=== PATIENT | female | born 1950 | race Caucasian/White ===

== ENCOUNTER 2016-06-24 22:13 | Emergency (ER) | payer MEDICARE, OTHER ==
[~2016-06-24] VITALS: Ht 170.2 cm; Wt 95.8 kg
[~2016-06-24 22:13] MED LIST: ALBU18HF INH; ALPR1TAB10 PO; ASPI-496 PO; ATOR10TA9 PO; BACL-19 PO; BUTA1CAP59 PO; CLIN300C93 PO; CYCL-259 PO; DULO60CA7 PO; FURO80TA3 PO; GABA300C10 PO; HYDR25TA6 PO; HYOS0.128 SL; LEVO25TA2 PO; LEVO750T26 PO; LISI-170 PO; LONOX PO; LORA1TAB PO; MELO-190 PO; METH-356 PO; MOME13HF INH; OXYC10TA6 PO; OXYC1TAB9 PO; OXYC5TAB2 PO; PRED20TA PO; TIOT18CA INH; TIZA4CAP PO; TRAM50TA2 PO
[2016-06-24 23:27] VITALS: BP 178/91
== END 2016-06-25 04:45 | disposition home or self-care (01) ==
LOC: ED 23:59
DX: K59.00 Constipation, unspecified (principal); E03.9 Hypothyroidism, unspecified; E78.00 Pure hypercholesterolemia, unspecified; I10 Essential (primary) hypertension; I25.10 Atherosclerotic heart disease of native coronary artery without angina pectoris; K58.9 Irritable bowel syndrome, unspecified; Z95.0 Presence of cardiac pacemaker; Z90.49 Acquired absence of other specified parts of digestive tract; Z90.710 Acquired absence of both cervix and uterus
CPT/HCPCS: 51701; 81001; P9612

== ENCOUNTER 2016-11-25 19:26 | Emergency (ER) | payer MEDICARE, OTHER ==
[~2016-11-25] VITALS: Ht 170.2 cm; Wt 150.0 kg
[2016-11-25] MEDS ORDERED: SODIUM CHLORIDE 0.9% 1,000 ML IV ONE (19:53)
[2016-11-25] MEDS ORDERED: SODIUM CHLORIDE FLUSH 10ML SYR IVF ONE (20:00)
[2016-11-25 20:45] LABS: HEMATOCRIT 37.9 % (34.6-47.8); HEMOGLOBIN 12.2 g/dL (11.7-16.4); WHITE BLOOD COUNT 11.7 x10^3/uL (3.4-10)
[2016-11-25 21:01] LABS: ASPARTATE AMINO TRANSFERASE 47 U/L (15-37); BLOOD UREA NITROGEN 8 mg/dL (7-18)
[2016-11-25 21:14] VITALS: BP 125/50
[2016-11-25] MEDS ORDERED: CEFTRIAXONE PMX 1GM/50ML 50 ML IV ONE (21:30)
[2016-11-25] MEDS ORDERED: SULFAMETH./TRIMETHOPRIM DS 800MG/160MG TABLET PO ONE (21:30)
[2016-11-25] MEDS ORDERED: CEFTRIAXONE PMX 1GM/50ML 50 ML ONE (21:49)
[2016-11-25] MEDS ORDERED: SULFAMETH./TRIMETHOPRIM DS 800MG/160MG TABLET ONE (21:50)
== END 2016-11-25 22:30 | disposition home or self-care (01) ==
LOC: ED 22:24
DX: L03.116 Cellulitis of left lower limb (principal); J44.9 Chronic obstructive pulmonary disease, unspecified; I10 Essential (primary) hypertension; E03.9 Hypothyroidism, unspecified; Z90.49 Acquired absence of other specified parts of digestive tract; Z90.710 Acquired absence of both cervix and uterus
CPT/HCPCS: 36415; 73502; 80053; 83605; 85025; 87040; 96361; 96365; 99285; J0696; J7030

== ENCOUNTER → 2017-09-11 | Outpatient (CLI) | payer MEDICARE ==
[~2017-09-11] MED LIST changes: +CLIN300C8 PO; -CLIN300C93 PO; -HYOS0.128 SL; +HYOS0.1281 SL; -MELO-190 PO; +MELO7.5T31 PO
== END | disposition home or self-care (01) ==
LOC: RAD 07:32
PROVIDERS: ATTEND Family Medicine
DX: R06.02 Shortness of breath (principal); R06.00 Dyspnea, unspecified; Z95.0 Presence of cardiac pacemaker
CPT/HCPCS: 71046

== ENCOUNTER → 2018-03-27 | Outpatient (CLI) | payer MEDICARE ==
[~2018-03-27] MED LIST changes: +OXYC-432 PO; -OXYC1TAB9 PO
== END | disposition home or self-care (01) ==
LOC: CFH 14:22
PROVIDERS: ATTEND Family Medicine
DX: Z12.31 Encounter for screening mammogram for malignant neoplasm of breast (principal); Z80.3 Family history of malignant neoplasm of breast
CPT/HCPCS: 77063; 77067

== ENCOUNTER 2018-05-29 05:28 | Day surgery (SDC) | payer MEDICARE ==
[~2018-05-29] VITALS: Ht 170.2 cm; Wt 117.0 kg
[~2018-05-29 05:28] MED LIST changes: -METH-356 PO; +METH10TA2 PO
[2018-05-29] MEDS ORDERED: LACTATED RINGERS 1,000 ML IV SCH (06:13)
[2018-05-29 06:19] VITALS: BP 104/69
[2018-05-29] MEDS ORDERED: FENTANYL PF 100 MCG/2ML ONE (07:12)
[2018-05-29] MEDS ORDERED: MIDAZOLAM 1 MG/ML, 2ML ONE (07:12)
[2018-05-29] MEDS ORDERED: methylPREDNISolone *ACETATE* 40 MG/ML ONE (07:14)
[2018-05-29] MEDS ORDERED: BUPIVACAINE/PF 0.5% ONE (07:14)
[2018-05-29] MEDS ORDERED: BUPIVACAINE 0.25% ONE (07:14)
[2018-05-29] MEDS ORDERED: PROPOFOL 10 MG/ML, 20ML ONE (07:28)
[2018-05-29] MEDS ORDERED: ONDANSETRON 2MG/ML, 2ML IVPush PRN (07:30)
[2018-05-29] MEDS ORDERED: PROMETHAZINE 25 MG/ML, 1ML IM PRN (07:30)
[2018-05-29] MEDS ORDERED: ACETAMINOPHEN 325 MG TABLET PO PRN ×2 (07:30→08:30)
[2018-05-29] MEDS ORDERED: ALBUTEROL SULFATE 2.5 MG/3 ML NPPB PRN (08:30)
[2018-05-29] MEDS ORDERED: FENTANYL PF 100 MCG/2ML IV PRN (08:30)
[2018-05-29] MEDS ORDERED: LABETALOL 5MG/ML, 20ML IV PRN (08:30)
[2018-05-29] MEDS ORDERED: OXYcodone 5 MG/5 ML ORAL.SOL UDC PO PRN (08:30)
[2018-05-29] MEDS ORDERED: KETOROLAC 30 MG/1 ML IV PRN (08:30)
[2018-05-29] MEDS ORDERED: PROMETHAZINE 25 MG/ML, 1ML IV PRN (08:30)
[2018-05-29] MEDS ORDERED: DIAZEPAM 5 MG/ML, 2ML IVPush PRN (08:30)
[2018-05-29] MEDS ORDERED: MEPERIDINE/PF 25MG/0.5ML IVPush PRN (08:30)
[2018-05-29] MEDS ORDERED: HYDROmorphone 2 MG/ML, 1ML IVPush PRN (08:30)
[2018-05-29] MEDS ORDERED: hydrALAzine 20 MG/ML, 1ML IV PRN (08:30)
[2018-05-29] MEDS ORDERED: ACETAMINOPHEN 650 MG/20.3 ML UDC ONE (08:37)
[2018-05-29 09:37] LABS: CELLS COUNTED 180
[2018-05-30] MEDS ORDERED: LEVOTHYROXINE 25 MCG TABLET PO SCH (06:00)
[2018-06-01] MEDS ORDERED: MELO7.5T31 PO (14:01)
[2018-06-01] MEDS ORDERED: TRAM50TA2 PO (14:14)
== END 2018-05-29 09:30 | disposition home or self-care (01) ==
LOC: OUT 05:28
PROVIDERS: ATTEND Orthopaedic Surgery
DX: M25.552 Pain in left hip (principal); J44.9 Chronic obstructive pulmonary disease, unspecified; E66.01 Morbid (severe) obesity due to excess calories; Z68.41 Body mass index [BMI] 40.0-44.9, adult
CPT/HCPCS: 20610; 73501; 77002; 87070; 87075; 87147; 87181; 87205; 89051; 93005; J2250; J2704; J3010; J7120; 76000; J3490; J1030

== ENCOUNTER 2018-06-01 16:15 | Inpatient (IN) | payer MEDICARE ==
[~2018-06-01] VITALS: Ht 170.2 cm; Wt 123.8 kg
[2018-06-01 15:38] LABS: BASOPHILS # (AUTO) 0.07 x10^3/uL (0-0.1); BASOPHILS % (AUTO) 1 % (0-1); EOSINOPHILS # (AUTO) 0.47 x10^3/uL (0-0.4); EOSINOPHILS % (AUTO) 5 % (1-7); LYMPHOCYTES # (AUTO) 2.53 x10^3/uL (1-3.4); LYMPHOCYTES % (AUTO) 25 % (22-44); MD NO; MEAN CORPUSCULAR HEMOGLOBIN 22.8 pg (27.0-34.8); MEAN CORPUSCULAR HGB CONC 31.6 g/dL (32.4-35.8); MEAN CORPUSCULAR VOLUME 72.3 fL (80-100); MEAN PLATELET VOLUME 7.7 fL (7.4-10.4); MONOCYTES # (AUTO) 0.71 x10^3/uL (0.2-0.8); MONOCYTES % (AUTO) 7 % (2-9); NEUTROPHILS % (AUTO) 63 % (42-75); PLATELET COUNT 457 x10^3/uL (130-400); RED BLOOD COUNT 4.78 x10^6/uL (3.82-5.3); RED CELL DISTRIBUTION WIDTH 19.5 % (9.6-15.2)
[2018-06-01 15:50] LABS: ALANINE AMINOTRANSFERASE 16 U/L (12-78); ALBUMIN 2.8 g/dL (3.4-5.0); ANION GAP 3 mmol/L (5-15); CALCIUM 8.6 mg/dL (8.5-10.1); CHLORIDE 106 mmol/L (98-107); CREATININE 0.54 mg/dL (0.55-1.02)
[2018-06-01 15:52] LABS: ALKALINE PHOSPHATASE 114 U/L (45-117); BILIRUBIN,TOTAL 0.3 mg/dL (0.2-1.0); TOTAL PROTEIN 7.1 g/dL (6.4-8.2)
[~2018-06-01 16:15] MED LIST changes: +ACETAMINOPHEN 500 MG TABLET ONE; +ACETAMINOPHEN 500 MG TABLET PO ONE; +DIAZEPAM 5 MG TABLET ONE; +DIAZEPAM 5 MG TABLET PO ONE; +FENTANYL PF 250 MCG/5ML ONE; +GABAPENTIN 300 MG CAPSULE ONE; +GABAPENTIN 300 MG CAPSULE PO ONE; +LACTATED RINGERS 1,000 ML IV SCH; +LIDOCAINE-MPF 1%, 2ML ONE; +MIDAZOLAM 1 MG/ML, 2ML ONE; +OxyconTIN ER 10 MG TAB.ER ONE; +OxyconTIN ER 10 MG TAB.ER PO ONE
[2018-06-01] MEDS ORDERED: TRANEXAMIC ACID 100 MG/ML, 10ML ONE (16:18)
[2018-06-01] MEDS ORDERED: KETOROLAC 60 MG/2 ML ONE (16:18)
[2018-06-01] MEDS ORDERED: ROPIvacaine/PF 0.2%, 20 ML ONE (16:18)
[2018-06-01] MEDS ORDERED: VANCOMYCIN 500 MG ONE (16:18)
[2018-06-01] MEDS ORDERED: EPINEPHRINE 1 MG/ML, 1ML ONE (16:19)
[2018-06-01] MEDS ORDERED: SODIUM CHLORIDE 0.9% 50 ML ONE (16:19)
[2018-06-01] MEDS ORDERED: VANCOMYCIN 1,000 MG ONE (16:25)
[2018-06-01] MEDS ORDERED: ROCURONIUM 10MG/ML,5ML ONE (16:41)
[2018-06-01] MEDS ORDERED: PHENYLEPHRINE 10 MG/ML ONE (16:41)
[2018-06-01] MEDS ORDERED: SUCCINYLCHOLINE 20 MG/ML, 10ML ONE (16:41)
[2018-06-01] MEDS ORDERED: MEPERIDINE/PF 25MG/0.5ML IVPush PRN ×2 (17:30→20:30)
[2018-06-01] MEDS ORDERED: FENTANYL PF 100 MCG/2ML IV PRN (17:30)
[2018-06-01] MEDS ORDERED: PROMETHAZINE 25 MG/ML, 1ML IV PRN (17:30)
[2018-06-01] MEDS ORDERED: MIDAZOLAM 1 MG/ML, 2ML IV PRN (17:30)
[2018-06-01] MEDS ORDERED: LABETALOL 5MG/ML, 20ML IV PRN ×2 (17:30→20:30)
[2018-06-01] MEDS ORDERED: hydrALAzine 20 MG/ML, 1ML IV PRN ×2 (17:30→20:30)
[2018-06-01] MEDS ORDERED: HYDROmorphone 2 MG/ML, 1ML IVPush PRN (17:30)
[2018-06-01] MEDS ORDERED: ALBUTEROL/IPRATROPIUM 2.5MG/0.5MG, 3 ML NPPB PRN (17:30)
[2018-06-01] MEDS ORDERED: ONDANSETRON 2MG/ML, 2ML IV PRN ×2 (17:30→20:30)
[2018-06-01] MEDS ORDERED: OXYcodone 5 MG/5 ML ORAL.SOL UDC PO PRN ×2 (17:30→20:30)
[2018-06-01] MEDS ORDERED: ONDANSETRON 2MG/ML, 2ML ONE (17:51)
[2018-06-01] MEDS ORDERED: CEFAZOLIN 1,000 MG ONE (17:51)
[2018-06-01] MEDS ORDERED: PROPOFOL 10 MG/ML, 20ML ONE (17:51)
[2018-06-01] MEDS ORDERED: MEPERIDINE/PF 100 MG/ML ONE (17:51)
[2018-06-01] MEDS ORDERED: HYDROmorphone 2 MG/ML, 1ML ONE (20:07)
[2018-06-01] MEDS ORDERED: FENTANYL PF 100 MCG/2ML ONE (20:07)
[2018-06-01] MEDS ORDERED: OXYcodone 5 MG/5 ML ORAL.SOL UDC ONE (20:07)
[2018-06-01] MEDS: HYDROmorphone 2 MG/ML, 1ML IVPush PRN ×2 (20:10→20:40)
[2018-06-01] MEDS: FENTANYL PF 100 MCG/2ML IV PRN ×2 (20:10→20:35)
[2018-06-01] MEDS ORDERED: HYDROmorphone 1 MG/ML, 1ML IV PRN (20:30)
[2018-06-01] MEDS ORDERED: VANCOMYCIN PER PHARMACY MC PRN (20:30)
[2018-06-01] MEDS ORDERED: LORazepam 2 MG/ML, 1ML IVPush PRN (20:30)
[2018-06-01] MEDS ORDERED: PROMETHAZINE 25 MG/ML, 1ML IM PRN (20:30)
[2018-06-01] MEDS ORDERED: TRANEXAMIC ACID 1,000 MG in SODIUM CHLORIDE 0.9% 100 ML IVPB ONE (20:30)
[2018-06-01] MEDS ORDERED: MAGNESIUM HYDROXIDE 8%, 30ML UDC PO PRN (20:30)
[2018-06-01] MEDS ORDERED: ONDANSETRON 4 MG TABLET PO PRN (20:30)
[2018-06-01] MEDS ORDERED: TEMPLATE NON-FORMULARY MED. (Alprazolam** 1 MG) PO SCH (20:30)
[2018-06-01] MEDS ORDERED: BISACODYL 10 MG SUPP PR PRN (20:30)
[2018-06-01] MEDS ORDERED: PROMETHAZINE 12.5 MG SUPP PR PRN (20:30)
[2018-06-01] MEDS ORDERED: PHARMACOKINETIC MONITORING MC PRN (22:00)
[2018-06-01 22:45] VITALS: BP 98/57
[2018-06-01] MEDS ORDERED: CEFAZOLIN PMX 2GM/50ML 50 ML IVPB SCH (23:30)
[2018-06-01] MEDS: ACETAMINOPHEN 500 MG TABLET PO SCH (23:46)
[2018-06-01] MEDS: DOCUSATE 100 MG CAPSULE PO SCH (23:46)
[2018-06-01] MEDS: ATORVASTATIN 20 MG TABLET PO SCH (23:47)
[2018-06-01] MEDS: GABAPENTIN 300 MG CAPSULE PO SCH (23:47)
[2018-06-01] MEDS: TIZANIDINE 4MG TABLET PO SCH (23:48)
[2018-06-01] MEDS: D5%-0.45% NACL 1,000 ML IV SCH (23:50)
[2018-06-02] MEDS: DIAZEPAM 5 MG TABLET PO PRN ×2 (00:34→22:26)
[2018-06-02] MEDS: ACETAMINOPHEN 500 MG TABLET PO SCH ×4 (02:50→20:26)
[2018-06-02] MEDS: OXYcodone IR 5MG TABLET PO PRN ×2 (03:20→20:26)
[2018-06-02] MEDS: D5%-0.45% NACL 1,000 ML IV SCH ×2 (03:30→12:04)
[2018-06-02 03:44] LABS: MEAN CORPUSCULAR HEMOGLOBIN 22.5 pg (27.0-34.8); MEAN CORPUSCULAR VOLUME 72.6 fL (80-100); PLATELET COUNT 408 x10^3/uL (130-400); RED BLOOD COUNT 4.12 x10^6/uL (3.82-5.3); RED CELL DISTRIBUTION WIDTH 19.4 % (9.6-15.2)
[2018-06-02 03:48] LABS: ALBUMIN 2.4 g/dL (3.4-5.0); ANION GAP 6 mmol/L (5-15); CALCIUM 8.1 mg/dL (8.5-10.1); CHLORIDE 109 mmol/L (98-107); CREATININE 0.74 mg/dL (0.55-1.02)
[2018-06-02 04:00] VITALS: BP 98/32
[2018-06-02 04:11] LABS: BASOPHILS # (AUTO) 0.05 x10^3/uL (0-0.1); BASOPHILS % (AUTO) 0 % (0-1); EOSINOPHILS % (AUTO) 0 % (1-7); LYMPHOCYTES # (AUTO) 1.41 x10^3/uL (1-3.4); LYMPHOCYTES % (AUTO) 7 % (22-44); MD SCAN; MONOCYTES % (AUTO) 3 % (2-9); NEUTROPHILS # (AUTO) 17.77 x10^3/uL (1.8-6.8); NEUTROPHILS % (AUTO) 90 % (42-75)
[2018-06-02] MEDS ORDERED: DEXAMETHASONE 4 MG/ML, 1ML IVPush SCH (06:00)
[2018-06-02] MEDS: LEVOTHYROXINE 137 MCG TABLET PO SCH (06:34)
[2018-06-02] MEDS ORDERED: VANCOMYCIN 1,700 MG in SODIUM CHLORIDE 0.9% 250 ML IV SCH (08:00)
[2018-06-02] MEDS: RIVAROXABAN 10 MG TABLET PO SCH (09:00)
[2018-06-02] MEDS: MULTIVITAMINS/MINERALS TABLET PO SCH (09:05)
[2018-06-02] MEDS: GABAPENTIN 300 MG CAPSULE PO SCH ×2 (09:06→20:26)
[2018-06-02] MEDS: DOCUSATE 100 MG CAPSULE PO SCH ×2 (09:06→20:26)
[2018-06-02] MEDS: TIZANIDINE 4MG TABLET PO SCH ×2 (09:07→16:22)
[2018-06-02] MEDS: DULOXETINE 30 MG CAPSULE.DR PO SCH (09:20)
[2018-06-02 10:19] LABS: HEMOGRAM NOTE RECHECKED
[2018-06-02] MEDS: CEFTRIAXONE PMX 2GM/50ML 50 ML IV SCH (12:45)
[2018-06-02 13:19] LABS: HCT (SEDRATE) 25.1 % (34.6-47.8)
[2018-06-02 15:21] VITALS: BP 111/58
[2018-06-02] MEDS: DIPHENHYDRAMINE 25 MG CAPSULE PO PRN (17:09)
[2018-06-02 20:13] VITALS: BP 109/52
[2018-06-02] MEDS: KETOROLAC 30 MG/1 ML IV SCH (20:26)
[2018-06-02] MEDS: ATORVASTATIN 20 MG TABLET PO SCH (20:26)
[2018-06-03] VITALS (11 sets, daily range): BP systolic 86–156; BP diastolic 40–73
[2018-06-03] MEDS: TIZANIDINE 4MG TABLET PO SCH ×4 (00:28→23:28)
[2018-06-03] MEDS: DIPHENHYDRAMINE 25 MG CAPSULE PO PRN (00:31)
[2018-06-03] MEDS: ACETAMINOPHEN 500 MG TABLET PO SCH ×4 (03:19→20:17)
[2018-06-03 05:21] LABS: ALBUMIN 2.1 g/dL (3.4-5.0); ANION GAP 6 mmol/L (5-15); CALCIUM 7.7 mg/dL (8.5-10.1); CHLORIDE 107 mmol/L (98-107)
[2018-06-03 05:24] LABS: ALANINE AMINOTRANSFERASE 13 U/L (12-78); ALKALINE PHOSPHATASE 85 U/L (45-117); BILIRUBIN,TOTAL 0.2 mg/dL (0.2-1.0); CREATININE 0.62 mg/dL (0.55-1.02); TOTAL PROTEIN 5.5 g/dL (6.4-8.2)
[2018-06-03] MEDS: KETOROLAC 30 MG/1 ML IV SCH ×2 (05:28→12:35)
[2018-06-03] MEDS: LEVOTHYROXINE 137 MCG TABLET PO SCH (05:36)
[2018-06-03] MEDS: MULTIVITAMINS/MINERALS TABLET PO SCH (09:00)
[2018-06-03] MEDS: DOCUSATE 100 MG CAPSULE PO SCH ×2 (09:00→20:16)
[2018-06-03] MEDS: DULOXETINE 30 MG CAPSULE.DR PO SCH (09:00)
[2018-06-03] MEDS: RIVAROXABAN 10 MG TABLET PO SCH (09:00)
[2018-06-03] MEDS: GABAPENTIN 300 MG CAPSULE PO SCH ×2 (09:00→20:17)
[2018-06-03] MEDS: CEFTRIAXONE PMX 2GM/50ML 50 ML IV SCH (12:32)
[2018-06-03] MEDS: ATORVASTATIN 20 MG TABLET PO SCH (20:17)
[2018-06-04 02:36] VITALS: BP 99/67
[2018-06-04] MEDS: ACETAMINOPHEN 500 MG TABLET PO SCH ×4 (02:42→20:30)
[2018-06-04] MEDS: LEVOTHYROXINE 137 MCG TABLET PO SCH (06:35)
[2018-06-04 06:59] LABS: MEAN CORPUSCULAR HEMOGLOBIN 22.9 pg (27.0-34.8); MEAN CORPUSCULAR HGB CONC 31.1 g/dL (32.4-35.8); MEAN CORPUSCULAR VOLUME 73.5 fL (80-100); PLATELET COUNT 327 x10^3/uL (130-400); RED BLOOD COUNT 3.86 x10^6/uL (3.82-5.3); RED CELL DISTRIBUTION WIDTH 19.5 % (9.6-15.2)
[2018-06-04 07:09] LABS: ALBUMIN 2.3 g/dL (3.4-5.0); CALCIUM 8.3 mg/dL (8.5-10.1); CHLORIDE 110 mmol/L (98-107)
[2018-06-04 07:12] LABS: ALANINE AMINOTRANSFERASE 11 U/L (12-78); ALKALINE PHOSPHATASE 84 U/L (45-117); BILIRUBIN,TOTAL 0.4 mg/dL (0.2-1.0); CREATININE 0.61 mg/dL (0.55-1.02); TOTAL PROTEIN 5.9 g/dL (6.4-8.2)
[2018-06-04 07:20] LABS: ANION GAP 4 mmol/L (5-15)
[2018-06-04 07:25] VITALS: BP 129/78
[2018-06-04 07:27] LABS: BASOPHILS # (AUTO) 0.05 x10^3/uL (0-0.1); BASOPHILS % (AUTO) 0 % (0-1); EOSINOPHILS # (AUTO) 0.69 x10^3/uL (0-0.4); EOSINOPHILS % (AUTO) 5 % (1-7); LYMPHOCYTES # (AUTO) 3.84 x10^3/uL (1-3.4); LYMPHOCYTES % (AUTO) 28 % (22-44); MD SCAN; MONOCYTES # (AUTO) 0.82 x10^3/uL (0.2-0.8); MONOCYTES % (AUTO) 6 % (2-9); NEUTROPHILS # (AUTO) 8.46 x10^3/uL (1.8-6.8); NEUTROPHILS % (AUTO) 61 % (42-75)
[2018-06-04] MEDS ORDERED: CALCIUM CARBONATE 500 MG TAB.CHEW PO PRN (07:30)
[2018-06-04] MEDS: DULOXETINE 30 MG CAPSULE.DR PO SCH (09:41)
[2018-06-04] MEDS: MULTIVITAMINS/MINERALS TABLET PO SCH (09:41)
[2018-06-04] MEDS: DOCUSATE 100 MG CAPSULE PO SCH ×2 (09:41→21:23)
[2018-06-04] MEDS: GABAPENTIN 300 MG CAPSULE PO SCH ×3 (09:42→21:27)
[2018-06-04] MEDS: RIVAROXABAN 10 MG TABLET PO SCH (09:43)
[2018-06-04] MEDS: TIZANIDINE 4MG TABLET PO SCH ×3 (09:43→21:25)
[2018-06-04] MEDS: OXYcodone IR 5MG TABLET PO PRN (12:53)
[2018-06-04] MEDS: CEFTRIAXONE PMX 2GM/50ML 50 ML IV SCH (12:54)
[2018-06-04 15:38] VITALS: BP 94/60
[2018-06-04 18:43] VITALS: BP 93/54
[2018-06-04] MEDS: ATORVASTATIN 20 MG TABLET PO SCH (21:23)
[2018-06-04] MEDS: SENNA/DOCUSATE TABLET PO PRN (21:24)
[2018-06-05 00:30] VITALS: BP 113/74
[2018-06-05] MEDS: ACETAMINOPHEN 500 MG TABLET PO SCH ×4 (02:30→23:52)
[2018-06-05] MEDS: DIAZEPAM 5 MG TABLET PO PRN (03:57)
[2018-06-05] MEDS: LEVOTHYROXINE 137 MCG TABLET PO SCH (05:59)
[2018-06-05 07:15] VITALS: BP 124/85
[2018-06-05] MEDS: TIZANIDINE 4MG TABLET PO SCH ×3 (08:52→23:52)
[2018-06-05] MEDS: MULTIVITAMINS/MINERALS TABLET PO SCH (08:52)
[2018-06-05] MEDS: DOCUSATE 100 MG CAPSULE PO SCH ×2 (08:52→23:52)
[2018-06-05] MEDS: RIVAROXABAN 10 MG TABLET PO SCH (08:52)
[2018-06-05] MEDS: DULOXETINE 30 MG CAPSULE.DR PO SCH (08:52)
[2018-06-05] MEDS: GABAPENTIN 300 MG CAPSULE PO SCH ×3 (08:53→23:55)
[2018-06-05] MEDS: CEFTRIAXONE PMX 2GM/50ML 50 ML IV SCH (12:29)
[2018-06-05 14:40] VITALS: BP 118/79
[2018-06-05 18:55] VITALS: BP 108/68
[2018-06-05] MEDS: ATORVASTATIN 20 MG TABLET PO SCH (23:52)
[2018-06-05] MEDS: SENNA/DOCUSATE TABLET PO PRN (23:52)
[2018-06-05] MEDS: DIPHENHYDRAMINE 25 MG CAPSULE PO PRN (23:55)
[2018-06-06 00:21] VITALS: BP 130/80
[2018-06-06] MEDS: ACETAMINOPHEN 500 MG TABLET PO SCH ×4 (02:30→23:53)
[2018-06-06] MEDS: LEVOTHYROXINE 137 MCG TABLET PO SCH (06:12)
[2018-06-06 06:38] LABS: BASOPHILS # (AUTO) 0.04 x10^3/uL (0-0.1); BASOPHILS % (AUTO) 0 % (0-1); EOSINOPHILS # (AUTO) 0.87 x10^3/uL (0-0.4); EOSINOPHILS % (AUTO) 9 % (1-7); LYMPHOCYTES # (AUTO) 3.24 x10^3/uL (1-3.4); LYMPHOCYTES % (AUTO) 32 % (22-44); MD NO; MEAN CORPUSCULAR HEMOGLOBIN 23.7 pg (27.0-34.8); MEAN CORPUSCULAR HGB CONC 32.1 g/dL (32.4-35.8); MEAN PLATELET VOLUME 8.1 fL (7.4-10.4); MONOCYTES # (AUTO) 0.76 x10^3/uL (0.2-0.8); MONOCYTES % (AUTO) 8 % (2-9); NEUTROPHILS # (AUTO) 5.14 x10^3/uL (1.8-6.8); NEUTROPHILS % (AUTO) 51 % (42-75); PLATELET COUNT 324 x10^3/uL (130-400); RED BLOOD COUNT 3.84 x10^6/uL (3.82-5.3); RED CELL DISTRIBUTION WIDTH 20.5 % (9.6-15.2)
[2018-06-06 06:51] LABS: ANION GAP 2 mmol/L (5-15); CALCIUM 8.2 mg/dL (8.5-10.1); CHLORIDE 110 mmol/L (98-107); CREATININE 0.42 mg/dL (0.55-1.02)
[2018-06-06] MEDS: DOCUSATE 100 MG CAPSULE PO SCH ×2 (09:12→23:54)
[2018-06-06] MEDS: TIZANIDINE 4MG TABLET PO SCH ×3 (09:13→23:54)
[2018-06-06] MEDS: DULOXETINE 30 MG CAPSULE.DR PO SCH (09:13)
[2018-06-06] MEDS: RIVAROXABAN 10 MG TABLET PO SCH (09:13)
[2018-06-06] MEDS: MULTIVITAMINS/MINERALS TABLET PO SCH (09:13)
[2018-06-06] MEDS: GABAPENTIN 300 MG CAPSULE PO SCH ×3 (09:13→23:54)
[2018-06-06] MEDS: DIPHENHYDRAMINE 25 MG CAPSULE PO PRN ×2 (09:14→17:01)
[2018-06-06 09:35] VITALS: BP 159/79
[2018-06-06] MEDS: CEFTRIAXONE PMX 2GM/50ML 50 ML IV SCH (12:51)
[2018-06-06 14:28] VITALS: BP 124/80
[2018-06-06 19:31] VITALS: BP 101/68
[2018-06-06] MEDS: ALUMINUM/MAG/SIMETHICONE 30 ML UDC PO PRN (21:22)
[2018-06-06] MEDS: ATORVASTATIN 20 MG TABLET PO SCH (23:54)
[2018-06-07 01:55] VITALS: BP 110/74
[2018-06-07] MEDS: ACETAMINOPHEN 500 MG TABLET PO SCH ×4 (02:30→20:04)
[2018-06-07] MEDS: LEVOTHYROXINE 137 MCG TABLET PO SCH (06:31)
[2018-06-07 07:01] VITALS: BP 149/86
[2018-06-07] MEDS: GABAPENTIN 300 MG CAPSULE PO SCH ×3 (08:12→20:04)
[2018-06-07] MEDS: DOCUSATE 100 MG CAPSULE PO SCH ×2 (08:12→20:04)
[2018-06-07] MEDS: TIZANIDINE 4MG TABLET PO SCH ×3 (08:12→20:04)
[2018-06-07] MEDS: RIVAROXABAN 10 MG TABLET PO SCH (08:12)
[2018-06-07] MEDS: MULTIVITAMINS/MINERALS TABLET PO SCH (08:13)
[2018-06-07] MEDS: DULOXETINE 30 MG CAPSULE.DR PO SCH (08:13)
[2018-06-07] MEDS: CEFTRIAXONE PMX 2GM/50ML 50 ML IV SCH (12:34)
[2018-06-07 13:14] VITALS: BP 137/77
[2018-06-07 19:58] VITALS: BP 104/66
[2018-06-07] MEDS: ATORVASTATIN 20 MG TABLET PO SCH (20:04)
[2018-06-07] MEDS: ALUMINUM/MAG/SIMETHICONE 30 ML UDC PO PRN (22:25)
[2018-06-08 02:22] VITALS: BP 114/72
[2018-06-08] MEDS: ACETAMINOPHEN 500 MG TABLET PO SCH ×5 (02:34→22:33)
[2018-06-08] MEDS: DIPHENHYDRAMINE 25 MG CAPSULE PO PRN ×2 (02:40→20:47)
[2018-06-08] MEDS: DIAZEPAM 5 MG TABLET PO PRN (04:36)
[2018-06-08 05:13] LABS: HCT (SEDRATE) 29.9 % (34.6-47.8)
[2018-06-08 05:14] LABS: BASOPHILS # (AUTO) 0.03 x10^3/uL (0-0.1); BASOPHILS % (AUTO) 0 % (0-1); EOSINOPHILS # (AUTO) 0.79 x10^3/uL (0-0.4); EOSINOPHILS % (AUTO) 8 % (1-7); LYMPHOCYTES % (AUTO) 29 % (22-44); MD NO; MEAN CORPUSCULAR HEMOGLOBIN 23.8 pg (27.0-34.8); MEAN CORPUSCULAR HGB CONC 32.1 g/dL (32.4-35.8); MEAN CORPUSCULAR VOLUME 74.3 fL (80-100); MEAN PLATELET VOLUME 8.3 fL (7.4-10.4); MONOCYTES # (AUTO) 0.71 x10^3/uL (0.2-0.8); MONOCYTES % (AUTO) 7 % (2-9); NEUTROPHILS # (AUTO) 5.43 x10^3/uL (1.8-6.8); NEUTROPHILS % (AUTO) 55 % (42-75); PLATELET COUNT 360 x10^3/uL (130-400); RED BLOOD COUNT 4.02 x10^6/uL (3.82-5.3); RED CELL DISTRIBUTION WIDTH 20.7 % (9.6-15.2)
[2018-06-08 05:19] LABS: CHLORIDE 110 mmol/L (98-107)
[2018-06-08] MEDS: LEVOTHYROXINE 137 MCG TABLET PO SCH (05:30)
[2018-06-08 05:31] LABS: ALANINE AMINOTRANSFERASE 17 U/L (12-78); ALBUMIN 2.2 g/dL (3.4-5.0); ALKALINE PHOSPHATASE 95 U/L (45-117); ANION GAP 4 mmol/L (5-15); BILIRUBIN,TOTAL 0.2 mg/dL (0.2-1.0); CALCIUM 8.2 mg/dL (8.5-10.1); CREATININE 0.49 mg/dL (0.55-1.02)
[2018-06-08 06:50] VITALS: BP 115/77
[2018-06-08] MEDS: DULOXETINE 30 MG CAPSULE.DR PO SCH (09:14)
[2018-06-08] MEDS: MULTIVITAMINS/MINERALS TABLET PO SCH (09:15)
[2018-06-08] MEDS: GABAPENTIN 300 MG CAPSULE PO SCH ×3 (09:15→20:41)
[2018-06-08] MEDS: TIZANIDINE 4MG TABLET PO SCH ×3 (09:15→21:00)
[2018-06-08] MEDS: RIVAROXABAN 10 MG TABLET PO SCH (09:15)
[2018-06-08] MEDS: DOCUSATE 100 MG CAPSULE PO SCH ×2 (09:15→20:43)
[2018-06-08] MEDS: ALUMINUM/MAG/SIMETHICONE 30 ML UDC PO PRN (09:57)
[2018-06-08] MEDS: CEFTRIAXONE PMX 2GM/50ML 50 ML IV SCH (12:26)
[2018-06-08 12:45] VITALS: BP 125/56
[2018-06-08 18:59] VITALS: BP 138/82
[2018-06-08] MEDS: ATORVASTATIN 20 MG TABLET PO SCH (20:41)
[2018-06-08] MEDS: ASA/APAP/ CAFFEINE TABLET PO PRN (20:47)
[2018-06-09 03:56] VITALS: BP 144/87
[2018-06-09] MEDS: LEVOTHYROXINE 137 MCG TABLET PO SCH (05:03)
[2018-06-09 07:36] VITALS: BP 141/83
[2018-06-09] MEDS: ACETAMINOPHEN 500 MG TABLET PO SCH ×3 (08:22→20:51)
[2018-06-09] MEDS: MULTIVITAMINS/MINERALS TABLET PO SCH (08:22)
[2018-06-09] MEDS: DOCUSATE 100 MG CAPSULE PO SCH ×2 (08:22→20:51)
[2018-06-09] MEDS: RIVAROXABAN 10 MG TABLET PO SCH (08:22)
[2018-06-09] MEDS: GABAPENTIN 300 MG CAPSULE PO SCH ×3 (08:22→20:51)
[2018-06-09] MEDS: DULOXETINE 30 MG CAPSULE.DR PO SCH (08:22)
[2018-06-09] MEDS: TIZANIDINE 4MG TABLET PO SCH ×3 (08:23→20:51)
[2018-06-09] MEDS: CEFTRIAXONE PMX 2GM/50ML 50 ML IV SCH (12:02)
[2018-06-09 12:38] VITALS: BP 123/68
[2018-06-09] MEDS: ASA/APAP/ CAFFEINE TABLET PO PRN (18:35)
[2018-06-09 20:04] VITALS: BP 108/66
[2018-06-09] MEDS: ALUMINUM/MAG/SIMETHICONE 30 ML UDC PO PRN (20:50)
[2018-06-09] MEDS: DIPHENHYDRAMINE 25 MG CAPSULE PO PRN (20:51)
[2018-06-09] MEDS: ATORVASTATIN 20 MG TABLET PO SCH (20:51)
[2018-06-10] MEDS: ACETAMINOPHEN 500 MG TABLET PO SCH ×4 (03:00→20:38)
[2018-06-10 03:43] VITALS: BP 115/56
[2018-06-10] MEDS: LEVOTHYROXINE 137 MCG TABLET PO SCH (06:05)
[2018-06-10 07:52] VITALS: BP 146/66
[2018-06-10] MEDS: RIVAROXABAN 10 MG TABLET PO SCH (08:47)
[2018-06-10] MEDS: DULOXETINE 30 MG CAPSULE.DR PO SCH (08:47)
[2018-06-10] MEDS: MULTIVITAMINS/MINERALS TABLET PO SCH (08:47)
[2018-06-10] MEDS: DOCUSATE 100 MG CAPSULE PO SCH ×2 (08:47→20:38)
[2018-06-10] MEDS: TIZANIDINE 4MG TABLET PO SCH ×3 (08:47→20:38)
[2018-06-10] MEDS: GABAPENTIN 300 MG CAPSULE PO SCH ×3 (08:47→20:38)
[2018-06-10] MEDS: CEFTRIAXONE PMX 2GM/50ML 50 ML IV SCH (12:14)
[2018-06-10 13:51] VITALS: BP 123/76
[2018-06-10] MEDS ORDERED: OXYC5TAB3 PO (15:13)
[2018-06-10] MEDS ORDERED: CEFT2PIG2 IV (15:13)
[2018-06-10] MEDS ORDERED: SENN-177 PO (15:13)
[2018-06-10] MEDS ORDERED: GABA300C10 PO (15:13)
[2018-06-10] MEDS ORDERED: ACET500T71 PO (15:13)
[2018-06-10] MEDS ORDERED: RIVA10TA2 PO (15:13)
[2018-06-10 19:17] VITALS: BP 129/77
[2018-06-10] MEDS: ATORVASTATIN 20 MG TABLET PO SCH (20:38)
[2018-06-10] MEDS: ASA/APAP/ CAFFEINE TABLET PO PRN (22:02)
[2018-06-11 00:27] VITALS: BP 104/69
[2018-06-11] MEDS: ACETAMINOPHEN 500 MG TABLET PO SCH ×3 (03:00→15:00)
[2018-06-11] MEDS: LEVOTHYROXINE 137 MCG TABLET PO SCH (06:25)
[2018-06-11] MEDS: DOCUSATE 100 MG CAPSULE PO SCH (08:44)
[2018-06-11] MEDS: MULTIVITAMINS/MINERALS TABLET PO SCH (08:44)
[2018-06-11] MEDS: RIVAROXABAN 10 MG TABLET PO SCH (08:45)
[2018-06-11] MEDS: GABAPENTIN 300 MG CAPSULE PO SCH ×2 (08:45→16:00)
[2018-06-11] MEDS: DULOXETINE 30 MG CAPSULE.DR PO SCH (08:46)
[2018-06-11] MEDS: TIZANIDINE 4MG TABLET PO SCH ×2 (08:46→16:00)
[2018-06-11] MEDS: CEFTRIAXONE PMX 2GM/50ML 50 ML IV SCH (12:30)
[2018-06-11 13:03] VITALS: BP 101/66
== END 2018-06-11 17:34 | DRG 463 ==
LOC: 4NOR 20:14 → CCU 22:52 → 4NOR 06-02 14:45
PROVIDERS: ADMIT Orthopaedic Surgery; ATTEND Orthopaedic Surgery
PROC: 0SHB08Z Insertion of Spacer into Left Hip Joint, Open Approach (ICD-10-PCS; 2018-06-01)
PROC: 0SBB0ZZ Excision of Left Hip Joint, Open Approach (ICD-10-PCS; 2018-06-01)
PROC: 0SPB0JZ Removal of Synthetic Substitute from Left Hip Joint, Open Approach (ICD-10-PCS; principal; 2018-06-01 16:15)
PROC: 30233N1 Transfusion of Nonautologous Red Blood Cells into Peripheral Vein, Percutaneous Approach (ICD-10-PCS; 2018-06-03)
PROC: 02HV33Z Insertion of Infusion Device into Superior Vena Cava, Percutaneous Approach (ICD-10-PCS; 2018-06-03)
PROC: B5181ZA Fluoroscopy of Superior Vena Cava using Low Osmolar Contrast, Guidance (ICD-10-PCS; 2018-06-03)
PROC: B548ZZA Ultrasonography of Superior Vena Cava, Guidance (ICD-10-PCS; 2018-06-03)
DX: T84.52XA Infection and inflammatory reaction due to internal left hip prosthesis, initial encounter (principal); J96.02 Acute respiratory failure with hypercapnia; J96.01 Acute respiratory failure with hypoxia; E43 Unspecified severe protein-calorie malnutrition; D62 Acute posthemorrhagic anemia; E87.2 Acidosis; Z68.41 Body mass index [BMI] 40.0-44.9, adult; E66.01 Morbid (severe) obesity due to excess calories; D63.8 Anemia in other chronic diseases classified elsewhere; E03.9 Hypothyroidism, unspecified; E78.5 Hyperlipidemia, unspecified; F32.9 Major depressive disorder, single episode, unspecified; G43.909 Migraine, unspecified, not intractable, without status migrainosus; G47.00 Insomnia, unspecified; G47.33 Obstructive sleep apnea (adult) (pediatric); G89.4 Chronic pain syndrome; I11.9 Hypertensive heart disease without heart failure; I95.89 Other hypotension; J44.9 Chronic obstructive pulmonary disease, unspecified; M19.90 Unspecified osteoarthritis, unspecified site; Y83.1 Surgical operation with implant of artificial internal device as the cause of abnormal reaction of the patient, or of later complication, without mention of misadventure at the time of the procedure; Z53.20 Procedure and treatment not carried out because of patient's decision for unspecified reasons; Z82.49 Family history of ischemic heart disease and other diseases of the circulatory system; Z86.74 Personal history of sudden cardiac arrest; Z90.710 Acquired absence of both cervix and uterus; Z95.0 Presence of cardiac pacemaker; Z96.653 Presence of artificial knee joint, bilateral; F41.9 Anxiety disorder, unspecified; J98.4 Other disorders of lung; Y92.89 Other specified places as the place of occurrence of the external cause
CPT/HCPCS: 36415; 36573; 71045; 72170; 80048; 80053; 82040; 82728; 82803; 82962; 83540; 83550; 83735; 84100; 85014; 85018; 85025; 85651; 86140; 86850; 86900; 86923; 87015; 87040; 87070; 87075; 87081; 87102; 87116; 87205; 87206; 87252; 94660; C1713; G0378; J0171; J0690; J0696; J1100; J1170; J1885; J2250; J2405; J2704; J2795; J3010; J3370; C1751; C1762; C1776; J0330; J2175; J2370; J7050; J7120; P9016; Q0163

== ENCOUNTER 2019-09-21 11:42 | Outpatient (CLI) | payer MEDICARE ==
[~2019-09-21 11:42] MED LIST changes: +ACET500T64 PO; -ACETAMINOPHEN 500 MG TABLET ONE; -ACETAMINOPHEN 500 MG TABLET PO ONE; +ALPR1TAB6 PO; +BUTA1CAP28 PO; +CEFT2PIG2 IV; -DIAZEPAM 5 MG TABLET ONE; -DIAZEPAM 5 MG TABLET PO ONE; +DOCU-180 PO; -FENTANYL PF 250 MCG/5ML ONE; -GABAPENTIN 300 MG CAPSULE ONE; -GABAPENTIN 300 MG CAPSULE PO ONE; +HYOS0.1282 PO; -LACTATED RINGERS 1,000 ML IV SCH; -LIDOCAINE-MPF 1%, 2ML ONE; -MIDAZOLAM 1 MG/ML, 2ML ONE; +OXYC5TAB3 PO; -OxyconTIN ER 10 MG TAB.ER ONE; -OxyconTIN ER 10 MG TAB.ER PO ONE; +RIVA10TA2 PO; +SENN-177 PO; +TIZA4TAB2 PO
[2019-09-21] MEDS ORDERED: OXYC5CAP2 PO (12:19)
[2019-09-21] MEDS ORDERED: NAPR220T77 PO (12:19)
[2019-09-21] MEDS ORDERED: SENN-92 PO (12:19)
[2019-09-21] MEDS ORDERED: NAPR1TAB25 PO (12:19)
[2019-09-21] MEDS ORDERED: TIZA4CAP PO (12:19)
[2019-09-21] MEDS ORDERED: OMEP-110 PO (12:19)
[2019-09-21 12:37] LABS: BASOPHILS # (AUTO) 0.03 x10^3/uL (0-0.1); BASOPHILS % (AUTO) 0 % (0-1); EOSINOPHILS # (AUTO) 0.63 x10^3/uL (0-0.4); EOSINOPHILS % (AUTO) 7 % (1-7); LYMPHOCYTES # (AUTO) 2.17 x10^3/uL (1-3.4); LYMPHOCYTES % (AUTO) 23 % (22-44); MD NO; MEAN CORPUSCULAR HEMOGLOBIN 27.8 pg (27.0-34.8); MEAN CORPUSCULAR HGB CONC 31.7 g/dL (32.4-35.8); MEAN CORPUSCULAR VOLUME 87.8 fL (80-100); MEAN PLATELET VOLUME 8.2 fL (7.4-10.4); MONOCYTES # (AUTO) 0.55 x10^3/uL (0.2-0.8); MONOCYTES % (AUTO) 6 % (2-9); NEUTROPHILS # (AUTO) 6.19 x10^3/uL (1.8-6.8); NEUTROPHILS % (AUTO) 65 % (42-75); PLATELET COUNT 263 x10^3/uL (130-400); RED BLOOD COUNT 4.99 x10^6/uL (3.82-5.3); RED CELL DISTRIBUTION WIDTH 16.3 % (9.6-15.2)
[2019-09-21] MEDS ORDERED: CEPH-376 PO (12:39)
[2019-09-21] MEDS ORDERED: [UNRECOGNIZED DRUG - OTHER] PO (12:39)
[2019-09-21] MEDS ORDERED: GABA300C PO ×2 (12:39)
[2019-09-21] MEDS ORDERED: OMEG1CAP34 PO (12:39)
[2019-09-21] MEDS ORDERED: Bariatric vitamin PO (12:39)
[2019-09-21] MEDS ORDERED: CALC-126 PO (12:39)
[2019-09-21] MEDS ORDERED: MV-M1TAB16 PO (12:39)
[2019-09-21 12:48] LABS: ALANINE AMINOTRANSFERASE 19 U/L (12-78); ALBUMIN 3.1 g/dL (3.4-5.0); CHLORIDE 108 mmol/L (98-107); CREATININE 0.77 mg/dL (0.55-1.02)
[2019-09-21 12:51] LABS: ALKALINE PHOSPHATASE 110 U/L (45-117); BILIRUBIN,TOTAL 0.4 mg/dL (0.2-1.0); TOTAL PROTEIN 7.1 g/dL (6.4-8.2)
[2019-09-21 13:00] LABS: ANION GAP 6 mmol/L (5-15)
== END 2019-09-21 23:59 | disposition home or self-care (01) ==
LOC: STAR 11:42
PROVIDERS: ATTEND Orthopaedic Surgery
DX: Z01.818 Encounter for other preprocedural examination (principal); M16.12 Unilateral primary osteoarthritis, left hip; I45.2 Bifascicular block; I51.7 Cardiomegaly
CPT/HCPCS: 36415; 80053; 85025; 87081; 93005

== ENCOUNTER 2019-09-27 11:28 | Inpatient (IN) | payer MEDICARE ==
[~2019-09-27] VITALS: Ht 170.2 cm; Wt 137.0 kg
[~2019-09-27 11:28] MED LIST changes: +Bariatric vitamin PO; +CALC-126 PO; +CEPH-376 PO; +EPINEPHRINE 1 MG/ML, 1ML ONE; +GABA300C PO; +KETOROLAC 60 MG/2 ML ONE; +MV-M1TAB16 PO; +NAPR1TAB25 PO; +NAPR220T77 PO; +OMEG1CAP34 PO; +OMEP-110 PO; -OXYC-432 PO; +OXYC1TAB18 PO; +OXYC5CAP2 PO; +ROPIvacaine/PF 0.2%, 20 ML ONE; +SENN-92 PO; +SODIUM CHLORIDE 0.9% 50 ML ONE; +TRANEXAMIC ACID 100 MG/ML, 10ML ONE; +[UNRECOGNIZED DRUG - OTHER] PO
[2019-09-27] MEDS ORDERED: VANCOMYCIN PER PHARMACY MC ONE (12:00)
[2019-09-27] MEDS ORDERED: LACTATED RINGERS 1,000 ML IV SCH (12:00)
[2019-09-27] MEDS ORDERED: GABAPENTIN 300 MG CAPSULE PO ONE (12:00)
[2019-09-27] MEDS ORDERED: CHLORHEXIDINE 15 ML UDC MM ONE (12:00)
[2019-09-27] MEDS ORDERED: ACETAMINOPHEN 500 MG TABLET PO ONE (12:00)
[2019-09-27] MEDS ORDERED: VANCOMYCIN 1,400 MG in SODIUM CHLORIDE 0.9% 250 ML IV ONE (12:30)
[2019-09-27 12:51] VITALS: BP 111/65
[2019-09-27] MEDS ORDERED: CEFAZOLIN 1,000 MG ONE ×2 (14:49→17:45)
[2019-09-27] MEDS ORDERED: FENTANYL PF 250 MCG/5ML ONE ×2 (14:52→16:57)
[2019-09-27] MEDS ORDERED: PROMETHAZINE 25 MG/ML, 1ML IV PRN (17:30)
[2019-09-27] MEDS ORDERED: ACETAMINOPHEN 325 MG TABLET PO PRN (17:30)
[2019-09-27] MEDS ORDERED: MEPERIDINE/PF 25MG/0.5ML IVPush PRN (17:30)
[2019-09-27] MEDS ORDERED: OXYcodone 5 MG/5 ML ORAL.SOL UDC PO PRN (17:30)
[2019-09-27] MEDS ORDERED: ALBUTEROL SULFATE 2.5 MG/3 ML NPPB PRN (17:30)
[2019-09-27] MEDS ORDERED: DIAZEPAM 5 MG/ML, 2ML IVPush PRN (17:30)
[2019-09-27] MEDS ORDERED: hydrALAzine 20 MG/ML, 1ML IV PRN (17:30)
[2019-09-27] MEDS ORDERED: GLYCOPYRROLATE 0.2MG/1ML, 5ML ONE (17:45)
[2019-09-27] MEDS ORDERED: ONDANSETRON 2MG/ML, 2ML ONE (17:45)
[2019-09-27] MEDS ORDERED: ROCURONIUM 10MG/ML,5ML ONE (17:45)
[2019-09-27] MEDS ORDERED: NEOSTIGMINE 1 MG/ML, 10ML ONE (17:45)
[2019-09-27] MEDS ORDERED: SUCCINYLCHOLINE 20 MG/ML, 10ML ONE (17:45)
[2019-09-27] MEDS ORDERED: PROPOFOL 10 MG/ML, 20ML ONE (17:45)
[2019-09-27] MEDS ORDERED: DEXAMETHASONE 4 MG/ML, 1ML ONE (17:45)
[2019-09-27] MEDS: FENTANYL PF 100 MCG/2ML IV PRN ×4 (17:50→18:21)
[2019-09-27] MEDS ORDERED: FENTANYL PF 100 MCG/2ML ONE ×2 (17:51→18:06)
[2019-09-27] MEDS ORDERED: PSYLLIUM PACKET PO PRN (18:00)
[2019-09-27] MEDS ORDERED: VANCOMYCIN PER PHARMACY MC PRN (18:00)
[2019-09-27] MEDS ORDERED: ALUMINUM/MAG/SIMETHICONE 30 ML UDC PO PRN (18:00)
[2019-09-27] MEDS ORDERED: ONDANSETRON 4 MG TABLET PO PRN (18:00)
[2019-09-27] MEDS ORDERED: ALPRazolam 1MG TAB PO PRN (18:00)
[2019-09-27] MEDS ORDERED: BISACODYL 10 MG SUPP PR PRN (18:00)
[2019-09-27] MEDS ORDERED: DEXAMETHASONE 4 MG/ML, 1ML IVPush SCH (18:00)
[2019-09-27] MEDS ORDERED: PROMETHAZINE 12.5 MG SUPP PR PRN (18:00)
[2019-09-27] MEDS ORDERED: PROMETHAZINE 25 MG/ML, 1ML IM PRN (18:00)
[2019-09-27] MEDS ORDERED: ZOLPIDEM 5MG TABLET PO PRN (18:00)
[2019-09-27] MEDS ORDERED: HYDROmorphone 1 MG/ML, 1ML INJ IVPush PRN (18:00)
[2019-09-27] MEDS ORDERED: ONDANSETRON 2MG/ML, 2ML IV PRN (18:00)
[2019-09-27] MEDS ORDERED: HYOSCYAMINE 0.125 MG TABLET PO PRN (18:00)
[2019-09-27] MEDS ORDERED: OXYcodone 5 MG/5 ML ORAL.SOL UDC ONE (18:06)
[2019-09-27] MEDS ORDERED: TRANEXAMIC ACID 1,000 MG in SODIUM CHLORIDE 0.9% 100 ML IVPB ONE (18:30)
[2019-09-27] MEDS: HYOSCYAMINE MC SCH (18:30)
[2019-09-27] MEDS: ALPRAZOLAM 1 MG MC SCH (18:30)
[2019-09-27] MEDS: LABETALOL 5MG/ML, 20ML IV PRN ×2 (18:45→18:56)
[2019-09-27] MEDS ORDERED: HYDROmorphone 1 MG/ML, 1ML INJ ONE (18:50)
[2019-09-27] MEDS: HYDROmorphone 1 MG/ML, 1ML INJ IVPush PRN ×2 (19:08→19:23)
[2019-09-27 19:50] VITALS: BP 119/67
[2019-09-27] MEDS: D5%-0.45% NACL 1,000 ML IV SCH (20:00)
[2019-09-27] MEDS ORDERED: PHARMACOKINETIC MONITORING MC PRN (21:00)
[2019-09-27] MEDS ORDERED: PHARMACOKINETIC CONSULTATION MC ONE (21:00)
[2019-09-27] MEDS: FERROUS SULFATE 325 MG TABLET PO SCH (21:40)
[2019-09-27] MEDS: GABAPENTIN 300 MG CAPSULE PO SCH (21:41)
[2019-09-27] MEDS: DOCUSATE 100 MG CAPSULE PO SCH (21:41)
[2019-09-27] MEDS: ATORVASTATIN 10 MG TABLET PO SCH (21:41)
[2019-09-27] MEDS: ACETAMINOPHEN 500 MG TABLET PO SCH (21:41)
[2019-09-27] MEDS: SENNA/DOCUSATE TABLET PO PRN (21:58)
[2019-09-27] MEDS: DIPHENHYDRAMINE 25 MG CAPSULE PO PRN ×2 (21:58→23:00)
[2019-09-27] MEDS ORDERED: VANCOMYCIN PMX 1GM/200ML 200 ML IV ONE (22:00)
[2019-09-27] MEDS: KETOROLAC 30 MG/1 ML IV SCH (22:56)
[2019-09-27 23:50] VITALS: BP 141/75
[2019-09-28] MEDS: ASPIRIN 81 MG TABLET EC PO SCH ×3 (00:41→21:44)
[2019-09-28] MEDS: CEFAZOLIN PMX 1GM/50ML 50 ML IVPB SCH ×3 (00:44→16:40)
[2019-09-28] MEDS: OXYcodone IR 5MG TABLET PO PRN ×2 (01:48→18:42)
[2019-09-28] MEDS: HYOSCYAMINE MC SCH (02:30)
[2019-09-28] MEDS: ALPRAZOLAM 1 MG MC SCH (02:30)
[2019-09-28 03:35] VITALS: BP 107/65
[2019-09-28] MEDS: ACETAMINOPHEN 500 MG TABLET PO SCH ×3 (03:59→16:01)
[2019-09-28] MEDS ORDERED: ALPRazolam 1MG TAB PO PRN (04:11)
[2019-09-28] MEDS ORDERED: HYOSCYAMINE 0.125 MG TABLET PO PRN (04:30)
[2019-09-28] MEDS: LEVOTHYROXINE 137 MCG TABLET PO SCH (05:24)
[2019-09-28 07:35] VITALS: BP 137/81
[2019-09-28] MEDS ORDERED: ASA/APAP/ CAFFEINE TABLET PO PRN (08:00)
[2019-09-28] MEDS: ASCORBIC ACID 500 MG TABLET PO SCH (08:37)
[2019-09-28] MEDS: MULTIVITAMINS/MINERALS TABLET PO SCH (08:37)
[2019-09-28] MEDS: DOCUSATE 100 MG CAPSULE PO SCH ×2 (08:37→21:43)
[2019-09-28] MEDS: DULOXETINE 30 MG CAPSULE.DR PO SCH (08:37)
[2019-09-28] MEDS: GABAPENTIN 300 MG CAPSULE PO SCH ×2 (08:37→21:44)
[2019-09-28] MEDS: CALCIUM/VITAMIN D3 250-125 TABLET PO SCH ×3 (08:37→16:40)
[2019-09-28] MEDS: FERROUS SULFATE 325 MG TABLET PO SCH ×2 (08:37→16:40)
[2019-09-28] MEDS: CALCIUM CARBONATE 500 MG TAB.CHEW PO SCH (08:37)
[2019-09-28] MEDS: OMEPRAZOLE 20 MG CAPSULE.DR PO SCH (08:38)
[2019-09-28] MEDS: TIZANIDINE 4MG TABLET PO PRN (08:51)
[2019-09-28] MEDS: MAGNESIUM HYDROXIDE 8%, 30ML UDC PO PRN (08:53)
[2019-09-28] MEDS: D5%-0.45% NACL 1,000 ML IV SCH ×2 (08:55→22:40)
[2019-09-28] MEDS: KETOROLAC 30 MG/1 ML IV SCH (11:57)
[2019-09-28] MEDS ORDERED: VANCOMYCIN 2,000 MG in SODIUM CHLORIDE 0.9% 500 ML IV ONE (12:00)
[2019-09-28 14:45] VITALS: BP 105/61
[2019-09-28] MEDS: DIPHENHYDRAMINE 25 MG CAPSULE PO PRN ×2 (16:39→21:57)
[2019-09-28] MEDS: POLYETHYLENE GLYCOL 17 GM PACKET PO PRN (16:49)
[2019-09-28 18:42] VITALS: BP 103/62
[2019-09-28] MEDS: ATORVASTATIN 10 MG TABLET PO SCH (21:44)
[2019-09-28] MEDS: SENNA/DOCUSATE TABLET PO PRN (21:57)
[2019-09-29] MEDS: ACETAMINOPHEN 500 MG TABLET PO SCH ×4 (00:28→17:17)
[2019-09-29] MEDS: TIZANIDINE 4MG TABLET PO PRN ×2 (00:28→23:30)
[2019-09-29 00:29] VITALS: BP 123/68
[2019-09-29] MEDS: KETOROLAC 30 MG/1 ML IV SCH ×3 (00:29→23:30)
[2019-09-29] MEDS: OXYcodone IR 5MG TABLET PO PRN (00:29)
[2019-09-29] MEDS: CEFAZOLIN PMX 1GM/50ML 50 ML IVPB SCH ×3 (00:30→17:17)
[2019-09-29] MEDS: LEVOTHYROXINE 137 MCG TABLET PO SCH (05:52)
[2019-09-29 05:55] LABS: CREATININE 0.92 mg/dL (0.55-1.02)
[2019-09-29 05:57] LABS: VANCOMYCIN,RANDOM 17.3 mcg/mL
[2019-09-29 07:53] VITALS: BP 111/64
[2019-09-29] MEDS: FERROUS SULFATE 325 MG TABLET PO SCH ×2 (08:16→17:18)
[2019-09-29] MEDS: CALCIUM CARBONATE 500 MG TAB.CHEW PO SCH (08:16)
[2019-09-29] MEDS: DULOXETINE 30 MG CAPSULE.DR PO SCH (08:18)
[2019-09-29] MEDS: CALCIUM/VITAMIN D3 250-125 TABLET PO SCH ×3 (08:18→17:17)
[2019-09-29] MEDS: SENNA/DOCUSATE TABLET PO PRN (08:18)
[2019-09-29] MEDS: DOCUSATE 100 MG CAPSULE PO SCH ×2 (08:18→22:27)
[2019-09-29] MEDS: GABAPENTIN 300 MG CAPSULE PO SCH ×2 (08:18→22:27)
[2019-09-29] MEDS: MULTIVITAMINS/MINERALS TABLET PO SCH (08:18)
[2019-09-29] MEDS: ASCORBIC ACID 500 MG TABLET PO SCH (08:18)
[2019-09-29] MEDS: ASPIRIN 81 MG TABLET EC PO SCH ×2 (08:18→22:27)
[2019-09-29] MEDS: POLYETHYLENE GLYCOL 17 GM PACKET PO PRN (08:18)
[2019-09-29] MEDS: OMEPRAZOLE 20 MG CAPSULE.DR PO SCH (08:18)
[2019-09-29] MEDS: MAGNESIUM HYDROXIDE 8%, 30ML UDC PO PRN (08:22)
[2019-09-29] MEDS: D5%-0.45% NACL 1,000 ML IV SCH (12:00)
[2019-09-29] MEDS: VANCOMYCIN 2,000 MG in SODIUM CHLORIDE 0.9% 500 ML IV SCH (12:05)
[2019-09-29 15:01] VITALS: BP 137/72
[2019-09-29] MEDS: ATORVASTATIN 10 MG TABLET PO SCH (22:27)
[2019-09-29 23:35] VITALS: BP 144/81
[2019-09-30] MEDS: D5%-0.45% NACL 1,000 ML IV SCH (00:23)
[2019-09-30] MEDS: CEFAZOLIN PMX 1GM/50ML 50 ML IVPB SCH ×2 (00:44→09:15)
[2019-09-30 02:00] VITALS: BP 129/78
[2019-09-30] MEDS: ACETAMINOPHEN 500 MG TABLET PO SCH ×3 (06:00→12:17)
[2019-09-30] MEDS: LEVOTHYROXINE 137 MCG TABLET PO SCH (06:21)
[2019-09-30 08:22] VITALS: BP 132/68
[2019-09-30] MEDS: DOCUSATE 100 MG CAPSULE PO SCH (09:14)
[2019-09-30] MEDS: ASCORBIC ACID 500 MG TABLET PO SCH (09:14)
[2019-09-30] MEDS: ASPIRIN 81 MG TABLET EC PO SCH (09:14)
[2019-09-30] MEDS: CALCIUM CARBONATE 500 MG TAB.CHEW PO SCH (09:14)
[2019-09-30] MEDS: GABAPENTIN 300 MG CAPSULE PO SCH (09:14)
[2019-09-30] MEDS: CALCIUM/VITAMIN D3 250-125 TABLET PO SCH ×2 (09:15→12:17)
[2019-09-30] MEDS: FERROUS SULFATE 325 MG TABLET PO SCH (09:15)
[2019-09-30] MEDS: DULOXETINE 30 MG CAPSULE.DR PO SCH (09:15)
[2019-09-30] MEDS: OMEPRAZOLE 20 MG CAPSULE.DR PO SCH (09:15)
[2019-09-30] MEDS: MULTIVITAMINS/MINERALS TABLET PO SCH (09:15)
[2019-09-30] MEDS: OXYcodone IR 5MG TABLET PO PRN (12:16)
[2019-09-30] MEDS: VANCOMYCIN 2,000 MG in SODIUM CHLORIDE 0.9% 500 ML IV SCH (12:16)
[2019-09-30 13:01] VITALS: BP 127/83
== END 2019-09-30 13:16 | disposition home health service (06) | DRG 468 ==
LOC: ORIP 11:28 → 4NE 19:50 → DCLOUNGE 09-30 13:12
PROVIDERS: ADMIT Orthopaedic Surgery; ATTEND Orthopaedic Surgery
PROC: 0SPB0JZ Removal of Synthetic Substitute from Left Hip Joint, Open Approach (ICD-10-PCS; 2019-09-27)
PROC: 0SRB0JZ Replacement of Left Hip Joint with Synthetic Substitute, Open Approach (ICD-10-PCS; principal; 2019-09-27 14:00)
DX: T84.52XA Infection and inflammatory reaction due to internal left hip prosthesis, initial encounter (principal); Z89.622 Acquired absence of left hip joint
CPT/HCPCS: 36415; 72170; 80202; 82565; 85014; 85018; 86850; 86900; 87015; 87070; 87075; 87102; 87116; 87205; 87206; 87635; 89051; C1713; G0378; J0171; J0690; J1100; J1170; J1885; J2405; J2704; J2710; J2795; J3010; J3370; C1776; J0330; J7040; J7050; J7120; Q0163